=== PATIENT | female | born 1940 | race Caucasian/White ===

== ENCOUNTER 2016-11-05 13:36 | Inpatient (IN) | payer OTHER ==
[~2016-11-05] VITALS: Ht 154.9 cm; Wt 51.7 kg
--- NOTE | ~2016-11-05 | EKG ---
[place] [address] [facility] [place] [address] ELECTROCARDIOGRAM REPORT Name: HARRISON MCCABE HANNAH Room #: 240-[facility] IN M.R.#: [id number] Admission: 11/05/16 Attend Phys: Austin Olivares MD, Discharge: 11/06/16 Date of : 44 Report #: [id number] THIS REPORT FOR: //name// [facility] Test Date: 2016-11-06 Test Time: 07:07:46 Pat Name: HARRISON MCCABE Department: Room: [facility] Gender: F Kineseologist: COMFORT : 1940 Requested By: Austin Olivares Order Number: [id number] MD: Billy Lawton Measurements Intervals [place] Rate: 91 P: 0 OR: 139 QRS: 74 QRSD: 105 T: 111 QT: 312 QTc: 384 Interpretive Statements Sinus rhythm Inferior infarct, acute (LCx) ST depression V1-V3, suggest recording posterior leads No previous ECG available for comparison Electronically Signed On 11-07-2016 9:05:07 CDT by Billy Lawton [email or web address] <ELECTRONICALLY SIGNED> By: Billy Lawton MD, [facility] 11/07/16904 6 6 Billy Lawton MD, [facility] /EPI
--- NOTE | ~2016-11-05 | EKG ---
[place] [address] [facility] [place] [address] ELECTROCARDIOGRAM REPORT Name: HARRISON MCCABE HANNAH Room #: 240-[facility] IN M.R.#: [id number] Admission: 11/05/16 Attend Phys: Austin Olivares MD, Discharge: 11/06/16 Date of : 44 Report #: [id number] THIS REPORT FOR: //name// [facility] ED Test Date: 2016-11-05 Test Time: 13:37:26 Pat Name: HARRISON MCCABE Department: Room: [facility] Gender: F Cisco Administrator: MZOOK : 1940 Requested By: Danuta Cuenca Order Number: [id number] MD: Billy Lawton Measurements Intervals [place] Rate: 101 P: 70 [place]: 162 QRS: 66 QRSD: 105 T: 90 QT: 362 QTc: 470 Interpretive Statements Sinus tachycardia Inferior infarct, acute (RCA) Probable RV involvement, suggest recording right precordial leads No previous ECG available for comparison Electronically Signed On 11-06-2016 15:18:13 CDT by Billy Lawton [email or web address] <ELECTRONICALLY SIGNED> By: Billy Lawton MD, [facility] 11/06/16 1518 1337 133 Billy Lawton MD, [facility] /EPI
--- NOTE | ~2016-11-05 | H ---
[facility] [place] [address] HISTORY AND PHYSICAL Name: HARRISON MCCABE HANNAH Room #: 240-[facility] IN M.R.#: [id number] Admission: 11/05/16 Attend Phys: Austin Olivares MD, Discharge: 11/06/16 Date of : 44 Report #: [id number] THIS REPORT FOR: //name// CC: Dr. Kenneth Kevin [facility] Dionte Gutierres DATE OF SERVICE: 11/05/2016 HISTORY OF PRESENT ILLNESS: The patient was flown from [facility] Emergency Room where she had presented having onset of chest pain, shortness of breath, the worse was last night in the more early evening hours. Subsequently, waxed and waned all night, finally came to the [facility] Emergency Room with inferior Q-waves, but still persistent ST elevation, in II, III and aVF. She has no prior cardiac history. She takes what we believe to be losartan and metoprolol for blood pressure. Does not take cholesterol medicines. She has noted more fatigue lately. Some questionable discomfort on and off over the last week, worse event was last night, less so now, still mild pressure and shortness of breath. No diaphoresis, no syncope or presyncope. No cardiac history herself. Her father had carotid stents placed. CURRENT MEDICATIONS: Appear to be fish oil, losartan 50, magnesium, metoprolol 25, potassium, vitamin Xanax, calcium, and baby aspirin. PAST MEDICAL HISTORY: Positive for hypertension, hypercholesterolemia, degenerative joint disease, tobacco use, chronic obstructive pulmonary disease, degenerative joint disease, appendectomy and cholecystectomy. SOCIAL HISTORY: She is . She has two children, pack a day plus smoker since she was young, no alcohol. FAMILY HISTORY: Father had carotid stents, no other premature coronary disease. REVIEW OF SYSTEMS: Negative except for chronic dyspnea and some intermittent bowel issues, she states. PHYSICAL EXAMINATION: VITAL SIGNS: Pulse is 100, blood pressure 110/70. She is a very slight under appearing, but no distress. HEENT: Eyes: Reveal xanthelasmas. Pharynx is clear. NECK: Shows preserved upstrokes without JVD or bruits. LUNGS: Prolonged expiratory phase, diminished in the bases. CARDIOVASCULAR: Tachycardic S1, S2, distant heart tones. ABDOMEN: Slightly protuberant, , no HSM, slightly tender in the midepigastric area. [facility] [address] [place] [address] HISTORY AND PHYSICAL Name: HARRISON MCCABE Room #: 240-[facility] IN .R.#: [id number] Admission: 11/05/16 Attend Phys: Austin Olivares MD, Discharge: 11/06/16 Date of : 44 Report #: [id number] EXTREMITIES: Reveal trace edema. Distal pulses diminished. The bilateral femoral pulses are intact but bruits are noted. MUSCULOSKELETAL: Generalized arthritic changes. I did not ambulate her. NEUROLOGIC: Intact. ASSESSMENT: 1. Acute ST segment elevation inferior wall myocardial infarction (stuttering) inferior Q-waves with ST elevation, persist. 2. Hypertension. 3. Hypercholesterolemia. 4. Chronic obstructive pulmonary disease, continued tobacco use. 5. Tachycardia secondary to above. 6. Degenerative joint disease. RECOMMENDATIONS AND PLAN: The patient has received aspirin and heparin, will give 80 of Lipitor, 5 IV Lopressor and proceed to the catheterization lab to delineate the anatomy and intervention as indicated. Risks, benefits, alternatives were discussed with patient. There is no family present. She is alert and oriented, does elect to proceed in this fashion. Thank you for asking us to assist in the care of this patient. <ELECTRONICALLY SIGNED> By: Austin Olivares MD, FACC 11/07/16 0904 1358 1454 Austin Olivares MD, FACC /nt
--- NOTE | ~2016-11-05 | CATHLAB ---
[facility] [address] [address] INVASIVE PROCEDURE REPORT Name: ELIOTHARRISON ROSE Room #: 240-P [facility] IN M.R.#: [id number] Admission: 11/05/16 Attend Phys: Austin Olivares, Discharge: 11/06/16 Date of : 44 Date of Service: 11/05/16 1544 Report #: [id number] THIS REPORT FOR: //name// CC: Austin [place] DATE OF SERVICE: 11/05/2016 PROCEDURE PREFORMED: Left ventriculography, coronary angiography, attempted RCA angioplasty, abdominal aortography. DESCRIPTION OF PROCEDURE: The patient brought to the catheterization lab having a troponin of 4, some inferior Q-waves and ST elevation, although relatively pain free. The troponin was 4.2 in [place], fell to 3.4 here, facilitating an episode of stuttering event and may have something to benefit. Utilized a JR4 guide, 6-Italian sheath in the right femoral artery after the right groin was prepped and draped in sterile manner. Then, 1% Xylocaine was used for local anesthesia. Versed was given for conscious sedation. A 6-Italian sheath in the right femoral artery, I utilized a Glidewire to navigate the subtotaled high grade right iliac system, 80-90% irregularities. Otherwise, preserved common and external iliac or portion of the proximal external iliac and common femoral artery was well preserved. All exchanges were made over the wire, the JR4 had a distal occlusion. Marginal branches were intact. FL4 for the left coronary system, significant proximal calcification, left main had distal tapered narrowing of 40%, proximal LAD 40-50% with moderate disease throughout the LAD and diagonal system, the circ OM was moderate in size with a 60-70% proximal lesion filling the moderate size OM system, which was potentially partially codominant. There was some filling faintly of the PDA which was occluded and that came off the right coronary artery. 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 I utilized a JR4 guide, 014 Luge and 010 Whisper wires to attempt this distal occlusion. This appears to be a chronic total occlusion, it is not clear. I believe the ST elevation may be due to the aneurysm and with falling troponin. It is not clear where the slight bump could have come from. She denies any significant pain until the night prior to this approximately 20 hours ago, although has had dyspnea and long time smoker for 50-55 pack years. She is a very small woman with moderately calcified peripheral vasculature in addition. Persistent ST elevation with inferior Q-waves, but I again perceive this as maybe due to the aneurysm of the inferior wall; she is hemodynamically stable, IV Lopressor. She is stable on oxygen with her underlying COPD. IV Lasix 20 has been given. The patient tolerated this well. We will transfer to CCU in guarded condition, but would not recommend further intervention at this time. HEMODYNAMICS: Aortic 134/84, LV 124/20. [facility] [address] [place] [address] INVASIVE PROCEDURE REPORT Name: HARRISON MCCABE Room #: 240-[facility] IN M.R.#: [id number] Admission: 11/05/16 Attend Phys: Austin Olivares, Discharge: 11/06/16 Date of : 44 Date of Service: 11/05/16 1544 Report #: [id number] IMPRESSION: 1. Attempt at distal right coronary artery angioplasty failed. I suspect this as chronic total occlusion. 2. Left main, distal tapered narrowing of left main of 40%. LAD, proximal narrowing of 40%, otherwise fairly well preserved vessel. 3. Circumflex marginal is not dominant, but there is proximal narrowing of the circumflex approaching 60-70%, moderately large OM with mild disease. There is [id number]-upyd collateral filling of the mid to distal PDA. 4. 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 5. 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 6. Abdominal aorta is ectatic without aneurysm. There is a high-grade disease in the distal right external iliac, possibly intervene at a later date. RECOMMENDATIONS: IV Lopressor, Lasix. I gave minimal amount of heparin and a half bolus of Integrilin. We will hold on any anticoagulants. There appears to be no complications from the attempted angioplasty of the right. There is no blush or staining. The patient is hemodynamically stable, transfer to CCU, remove the vascular sheath and then follow post-infarct protocol here. Statin, beta elkin, afterload reducers, blood pressure control. Thank you for asking us to assist in the care of this patient. <ELECTRONICALLY SIGNED> By: Austin Olivares MD, FACC 11/07/16 0903 1544 2147 Austin Olivares MD, FACC /nt
--- NOTE | ~2016-11-05 | H ---
[facility] [place] [address] HISTORY AND PHYSICAL Name: HARRISON MCCABE HANNAH Room #: 240-P [facility] IN M.R.#: [id number] Admission: 11/05/16 Attend Phys: Austin Olivares MD, Discharge: 11/06/16 Date of : 44 Report #: [id number] THIS REPORT FOR: //name// CC: Austin Gutierres DATE OF SERVICE: 11/05/2016 ADDENDUM LABORATORY DATA: From [place] reveals a troponin of 4, a BNP of 4182, lactate was 2.4, creatinine 0.99, potassium 4.2, sodium 135. I am seeing the CBC differential, but I am not seeing hemoglobin here. We will proceed to the garage laborer. We will obtain our own stat labs here at [facility]. H and H are fine. The H and H are 13.1 and 39.1, white count 12.48. The chest x-ray there shows bilateral infiltrate, possibly pneumonia in the right base. Also, we will repeat a chest x-ray here. <ELECTRONICALLY SIGNED> By: Austin Olivares MD, [facility] 11/07/16 0904 1402 1810 Austin Olivares MD, FACC /nt
--- NOTE | ~2016-11-05 | HC ---
[facility] [address] CONSULTATION Name: HARRISON MCCABE Room #: 240-P [facility] IN M.R.#: [id number] Admission: 11/05/16 Attend Phys: Austin Olivares MD, Discharge: 11/06/16 Date of : 44 Report #: [id number] THIS REPORT FOR: //name// CC: Austin Olivares MD [facility] Praveen [place] DATE OF SERVICE: 11/05/2016 REFERRING PROVIDER: Dr. Austin Olivares. REASON FOR CONSULTATION: Shortness of breath and abnormal x-ray. HISTORY OF PRESENT ILLNESS: Our group was asked to see the patient in consultation while hospitalized at [facility], a pleasant 76-year-old woman with a past pulmonary history significant for tobacco abuse, but has no known lung disease that she is aware of. Has been having some progressive exertional dyspnea and some cough, sometimes productive of yellow sputum. States she has cough throughout the day that became more severe in onset on the day of admission today with some associated chest pain, more so on the left side and was found to have some changes on EKG and subsequently underwent cardiac earlier today with cardiac catheterization without findings to account for current symptoms though it sounds like some coronary disease found. The patient had abnormal radiograph which revealed a right pleural effusion and possibly some right basilar infiltrate and/or volume loss. We were asked to further evaluate. ALLERGIES: Include PROPOXYPHENE and TYLENOL. PAST MEDICAL HISTORY: 1. Hypertension. 2. Hyperlipidemia. 3. Tobacco abuse. 4. Probable COPD. OUTPATIENT MEDICATIONS: Include fish oil, losartan, magnesium, metoprolol, Xanax, calcium, baby aspirin. SOCIAL HISTORY: , has 2 children, currently smokes a pack per day and has over 60 years. No alcohol consumption. 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 FAMILY HISTORY: Significant for father with coronary artery disease. REVIEW OF SYSTEMS: Twelve-point review of systems is negative except for as [facility] [address] [place] [address] CONSULTATION Name: HARRISON MCCABE MILPITAS Room #: [address] [place] [address] IN M.R.#: [id number] Admission: 11/05/16 Attend Phys: Austin Olivares MD, Discharge: 11/06/16 Date of : 44 Report #: [id number] described in the HPI. PHYSICAL EXAMINATION: VITAL SIGNS: Afebrile, pulse 100 and regular, respiratory rate 20, blood pressure 134/81, oxygen saturation 99% on 2 liters. GENERAL: This is a pleasant elderly woman in no distress. ENT: Clear oropharynx, Mallampati 1 airway, no thrush. No erythema. NECK: Supple, no lymphadenopathy. LUNGS: Diminished with diffuse wheezes noted throughout. CARDIOVASCULAR: Heart regular. No murmurs noted. ABDOMEN: Soft, nontender, no masses. EXTREMITIES: Warm, 2+ pulses, no edema, some slight hyperemia to lower extremity digits. LABORATORY DATA: Chest x-ray as described. White blood cell count 13,000, hemoglobin 11, hematocrit 34, platelet count of 445. Arterial blood gas on 5 liters revealed pH 7.47, pCO2 of 33, pO2 of 74. Chemistry profile within reasonable limits, elevated troponin noted 3.62, albumin low at 2.4. IMPRESSION: 1. Abnormal chest x-ray. Findings suggestive of a small to moderate right pleural effusion as well as appears to me to be some volume loss of the right lower lobe as well as some underlying emphysematous changes and probably some interstitial scarring and more concerned about the potential underlying malignant process in addition to pneumonia. 2. Probable community-acquired pneumonia. 3. Coronary artery disease. 4. Probable chronic obstructive pulmonary disease, severity uncertain. 5. Acute hypoxemic respiratory failure. SUGGEST: 1. Bronchodilators. 2. CT scan of the chest. 3. Steroid with taper. 4. Continue Rocephin and azithromycin. 5. Cultures. 6. Nasal swab for respiratory viral panel. 7. Additional recommendations to follow. Thank you for requesting our suggestions. <ELECTRONICALLY SIGNED> By: Tanner Umana MD 11/08/16 1434 2222 0104 Tanner Umana MD /nt
--- NOTE | ~2016-11-05 | DEA ---
[facility] [place] [address] SUMMARY Name: HARRISON MCCABE HANNAH Room #: 240-P [facility] IN M.R.#: [id number] Admission: 11/05/16 Attend Phys: Austin Olivares MD, Discharge: 11/06/16 Date of : 44 Report #: [id number] THIS REPORT FOR: //name// CC: Austin Cooper DO [facility] COURSE: The patient is a 76-year-old female who was admitted to me from [facility], followed by Dr. Cooper and nurse practitioner, Ena Kevin, with some questionable chest pain. There were Q-waves inferiorly, ST elevation inferiorly. Taken to the catheterization lab. Troponin was 4 in [place] and 3 here. I attempted to open what appears to be a chronically occluded RCA and I suspect not much in the way of an acute infarct here. The moderate LAD and circumflex disease. Did have high-grade external iliac disease, which I did work through and attempted to open this right coronary artery without success. She remained hemodynamically stable and was essentially pain-free. I believe the ST elevation inferiorly was due to possible inferior wall aneurysm and I believe this occlusion was probably old as the PDA was well collateralized. She had an uneventful night. Also felt to have possibly pneumonia, COPD, longstanding and 60+ pack year history. Had been taking only losartan, metoprolol, Xanax and baby aspirin at home. Long-standing hypertension, hypercholesterolemia and the COPD. , 2 children were actively present here. In any event, she did found to have some anxiety issues early a.m. the following morning and hypotension. Blood gas was obtained, which showed acidosis and a lactate of 8. Shortly thereafter, did have some cardiovascular collapse. There was prolonged code situation with intubation in the CCU, transfer to the ICU with pressors and then coded again and duration of code blue was approximately an hour. Did intermittently have return of pressure and rhythm. I even attempted pericardiocentesis blindly. No evidence of significant tamponade, stat echo subsequently to follow as this was the early a.m. hours, did not show any tamponade physiology. We never could obtain blood for stat labs because of the continued code situation. ACLS protocol was followed by myself and Dr. Martinez. The daughter was present, who is a nurse at the [employer] and the son did come also. Further long discussion with them. Obviously some down time here, very small, somewhat cachectic, long-time tobacco history. Subsequently, succumbed at 09:40 a.m. [place] there was no meaningful chance of recovery here. Pressors were stopped and ventilator. They did not want autopsy. I suspect this may well have been ischemic gut. I do not believe this was cardiovascular in nature, certainly. Obviously moderate coronary artery disease played a role as did her significant underlying pulmonary issues. DISCHARGE DIAGNOSES: 1. Lactic acidosis, suspected from ischemic colon, although not documented. 2. Xpp-JF-juttrdipe myocardial infarction with coronary artery disease and failed angioplasty of what appears to be an occluded right coronary artery, [address] [address] SUMMARY Name: HARRISON MCCABE HANNAH Room #: 240-P [facility] IN M.R.#: [id number] Admission: 11/05/16 Attend Phys: Austin Olivares MD, Discharge: 11/06/16 Date of : 44 Report #: [id number] moderate left anterior descending and circumflex diseases. See catheterization lab report. 3. 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 4. Chronic obstructive pulmonary disease and continued tobacco use. 5. Hypertension. 6. Hypercholesterolemia. 7. Degenerative joint disease. I had a long discussion with the daughter and son. They request no autopsy or further interrogation. Thank you for allowing me to assist in the care of this patient, with this unfortunate outcome. <ELECTRONICALLY SIGNED> By: Austin Olivares MD, FACC 11/07/16 0904 1102 1147 Austin Olivares MD, FACC /nt
[2016-11-05] MEDS ORDERED: COZAAR 50 MG TA50 M2 PO (13:48)
[2016-11-05] MEDS ORDERED: XANAX 0.25 MG0.25 MG PO (13:48)
[2016-11-05] MEDS ORDERED: ESTRADIOL 1 MG T1 M1 PO (13:48)
[2016-11-05] MEDS ORDERED: METOPROLOL TART25 MG PO (13:48)
[2016-11-05] MEDS ORDERED: PROZAC20 MG PO (13:49)
[2016-11-05] MEDS ORDERED: DEXAMETHASONE4 MG PO (13:49)
[2016-11-05 14:02] LABS: HEMATOCRIT 33.6 % (37.0-47.0); HEMOGLOBIN 11.3 gm/dL (12.0-15.0); MCH 29.2 pg (26.0-34.0); MCHC 33.7 g/dL (28.0-37.0); MCV 86.7 fL (80.0-100.0); PLATELET COUNT 445 thou/uL (150-400); RBC 3.88 mil/uL (4.20-5.00); RDW 13.7 % (10.5-14.5); WBC 12.8 thou/uL (4.0-11.0)
[2016-11-05 14:04] LABS: MANUAL DIFF YES
[2016-11-05 14:06] LABS: POC CA IONIZED 4.5 mg/dL (4.5-5.3); POC CREATININE 0.6 mg/dL (0.6-1.3); POC HEMOGLOBIN 11.6 g/dL (12.0-15.0); POC POTASSIUM 3.9 mmol/L (3.5-5.1)
[2016-11-05 14:08] LABS: ABG SAMPLE TYPE ARTERIAL; BE(vivo) -0.1 mmol/L (-2 to +3); HCO3 23.1 mmol/L (22.0-26.0); LACTATE 1.15 mmol/L (0.5-2.0); O2(CT) 16.3 mL/dL (15.0-23.0); O2Hb 93.7 % (92.0-98.0); PCO2 32.8 mmHg (35.0-45.0); PO2 77.4 mmHg (80.0-100.0); pH 7.465 (7.360-7.450); sO2 96.2 % (92.0-98.0); tCO2 24.1 mmol/L (24.0-30.0)
[2016-11-05 14:09] LABS: STICK SITE R.RADIAL
[2016-11-05 14:16] LABS: PROTIME 10.3 Seconds (9.3-11.4)
[2016-11-05 14:19] LABS: CALCIUM 8.8 mg/dL (8.5-10.1); CREATININE 0.8 mg/dL (0.6-1.3); POTASSIUM 3.9 mmol/L (3.5-5.1)
[2016-11-05 14:23] LABS: ALBUMIN 2.4 g/dL (3.4-5.0); TOTAL BILIRUBIN 0.2 mg/dL (<0.1-1.0); TOTAL PROTEIN 7.6 g/dL (6.4-8.2)
[2016-11-05 14:29] LABS: TROPONIN-I 3.62 ng/mL (<0.04-0.07)
[2016-11-05 14:40] LABS: ABSOLUTE NEUTROPHILS 12.3 thou/uL (1.4-8.2); TOTAL CELL COUNT 100
[2016-11-06 03:08] LABS: HEMATOCRIT 33.6 % (37.0-47.0); HEMOGLOBIN 11.2 gm/dL (12.0-15.0); MCH 28.9 pg (26.0-34.0); MCHC 33.3 g/dL (28.0-37.0); MCV 86.7 fL (80.0-100.0); RBC 3.88 mil/uL (4.20-5.00); RDW 13.6 % (10.5-14.5)
[2016-11-06 03:23] LABS: CALCIUM 8.4 mg/dL (8.5-10.1); CREATININE 0.9 mg/dL (0.6-1.3); POTASSIUM 4.1 mmol/L (3.5-5.1)
[2016-11-06 03:24] LABS: TROPONIN-I 2.99 ng/mL (<0.04-0.07)
[2016-11-06 03:34] LABS: CHOLESTEROL 135 mg/dL (<200); HDL CHOLESTEROL 44 mg/dL (>40); LDL CHOLESTEROL 73 mg/dL (<100); TC:HDL 3.1 Ratio (Not establshd); TRIGLYCERIDE 94 mg/dL (<150); VLDL 19 mg/dL (<40)
[2016-11-06 03:35] LABS: SERUM ASSESSMENT Clear
[2016-11-06 07:10] LABS: ABG SAMPLE TYPE ARTERIAL; BE(vivo) -14.5 mmol/L (-2 to +3); LACTATE 8.75 mmol/L (0.5-2.0); O2(CT) 17.1 mL/dL (15.0-23.0); O2Hb 95.1 % (92.0-98.0); PCO2 42.6 mmHg (35.0-45.0); PO2 101.9 mmHg (80.0-100.0); pH 7.135 (7.360-7.450); sO2 95.8 % (92.0-98.0); tCO2 15.3 mmol/L (24.0-30.0)
[2016-11-06 07:11] LABS: STICK SITE L.FEMORAL
== END 2016-11-06 09:40 | DRG 208 ==
LOC: ER 13:36 → EROBS 13:57 → 2N 13:57 → ICU 11-06 07:38
PROVIDERS: Internal Medicine Cardiovascular Disease; Nurse Practitioner Family
PROC: B2151ZZ Fluoroscopy of Left Heart using Low Osmolar Contrast (ICD-10-PCS; principal; 2016-11-05)
PROC: B2111ZZ Fluoroscopy of Multiple Coronary Arteries using Low Osmolar Contrast (ICD-10-PCS; principal; 2016-11-05)
PROC: B4101ZZ Fluoroscopy of Abdominal Aorta using Low Osmolar Contrast (ICD-10-PCS; principal; 2016-11-05)
PROC: 4A023N7 Measurement of Cardiac Sampling and Pressure, Left Heart, Percutaneous Approach (ICD-10-PCS; principal; 2016-11-05)
PROC: 0BH17EZ Insertion of Endotracheal Airway into Trachea, Via Natural or Artificial Opening (ICD-10-PCS; 2016-11-06)
PROC: 5A1935Z Respiratory Ventilation, Less than 24 Consecutive Hours (ICD-10-PCS; 2016-11-06)
DX: J96.01 Acute respiratory failure with hypoxia (principal); I21.3 ST elevation (STEMI) myocardial infarction of unspecified site; J18.9 Pneumonia, unspecified organism; E87.2 Acidosis; I10 Essential (primary) hypertension; E78.5 Hyperlipidemia, unspecified; J44.9 Chronic obstructive pulmonary disease, unspecified; E78.00 Pure hypercholesterolemia, unspecified; I25.10 Atherosclerotic heart disease of native coronary artery without angina pectoris; I25.5 Ischemic cardiomyopathy; M19.90 Unspecified osteoarthritis, unspecified site; I72.9 Aneurysm of unspecified site; R00.0 Tachycardia, unspecified; Z90.49 Acquired absence of other specified parts of digestive tract; Z88.6 Allergy status to analgesic agent; Z87.891 Personal history of nicotine dependence; Z82.49 Family history of ischemic heart disease and other diseases of the circulatory system
CPT/HCPCS: 10194